=== PATIENT | female | born 1950 | race Caucasian/White ===

== ENCOUNTER → 2017-04-08 | Outpatient (CLI) | payer MEDICARE, OTHER ==
[~2017-04-08] MED LIST: ACTOS PO; ACTOS15 MG PO; AMARYL; AMARYL PO; ASPIRIN; CARTIA XT PO; CARTIA XT120 MG PO; CELEXA PO; CHANTIX PO; CREON 10 CAPSU249 MG PO; CREON DR 24,001 EACH PO; DYAZIDE 37.5/251 CAP; ENBREL50 MG/ML; FAMOTIDINE; FLEXERIL10 MG; GLUCOPHAGE500 MG PO; HUMERA; HUMIRA40 MG/0.1 SQ; HYDROCODON-ACE1 EAC9 PO; LISINOPRIL; LISINOPRIL PO; LISINOPRIL20 MG PO; LORTAB 5/500 TA1 TA1 PO; LORTAB 7.51 TAB PO; PRILOSEC PO; PRILOSEC20 M1 PO; SKELAXIN PO; STELARA45 MG/0.1 INJ; STELARA45 MG/0.1 SQ; ZESTORETIC 20/11 TAB PO; ZESTRIL40 MG PO; ZETIA PO; ZYBAN PO; [UNRECOGNIZED DRUG - OTHER] INJ
--- NOTE | ~2017-04-08 | MY11 ---
[facility] A Service of [facility] RADIOLOGY TEXT RESULTS PATIENT: CHIKI BARAJAS LOCATION: [facility] : 52 UNIT #: [id number] AGE: [address]: MARILU HEART MD SEX: F ORDER DR: [id number] [facility]. [place], [place] [address] [id number] O MR#: [id number] Acc #: [id number] NAME: CHIKI BARAJAS : 1950 SEX: F STUDY DATE/TIME: 04/08/2017 13:27 UNIT: [facility] ROOM: STUDY DESCRIPTION: MY Mammogram Screening Dig Evgeny Attending Physician: Marilu Heart M.D. Referring Physician: Marilu Heart M.D. Ordering Physician: Marilu Heart M.D. Primary Care Physician: Marilu Heart M.D. MEDICAL IMAGING REPORT This report is preliminary unless electronic signature is present EXAM Digital screening mammogram 04/08/2017. HISTORY 66-year-old woman; no risk elevation. History states right breast larger than left. Annual screening. COMPARISON 06/12/2007, 05/07/2015. FINDINGS Digital imaging of each breast was completed utilizing a two-view examination of each breast in craniocaudal and mediolateral-oblique projections. Review and interpretation of digital mammograms include a second review in conjunction with FDA-approved CAD device. There is a normal parenchymal presentation bilaterally consistent with the patient's age. There are no breast masses imaged and no parenchymal asymmetry is visualized. There are no suspicious microcalcifications and I see no focal architectural disturbance. NOTE: Breast parenchyma is fatty replaced. IMPRESSION Negative screening digital mammogram. One-year followup recommended. Patients over the age of 40 are entered into a reminder system with target due date for the next mammogram. A result letter will also be sent to the patient. BIRADS: 1 Negative [facility] A Service of [facility] RADIOLOGY TEXT RESULTS PATIENT: CHIKI BARAJAS LOCATION: [facility] : 52 UNIT #: [id number] AGE: [address]: MARILU HEART MD SEX: F ORDER DR: Dictated by... Ralph Cruz M.D. THIS IS AN ELECTRONICALLY VERIFIED REPORT Ralph Cruz M.D. at 04/11/2017 8:16 AM GUEVARA/ramya TD: 04/08/2017 16:40 JOB #: [id number] MEDICAL IMAGING REPORT Page 1 of 1 COPY
== END | disposition home or self-care (01) ==
LOC: CWCC 13:00
DX: Z12.31 Encounter for screening mammogram for malignant neoplasm of breast (principal)
CPT/HCPCS: G0202